=== PATIENT | female | born 1990 | race Caucasian/White ===

== ENCOUNTER 2022-05-14 00:38 | Day surgery (SDC) | payer OTHER, BC, SELFPAY ==
--- NOTE | 2022-05-11 07:27 | PM.IMHP ---
H&P: HPI History of Present Illness Date/Time: 05/11/22 07:27 Chief Complaint: Desires sterilization with excessive heavy bleeding Narrative: This is a 32-year-old female with a Nexplanon and would like to have tubal ligation for permanent sterilization as well as an ablation due to excessive heavy bleeding. She has no children but she is sure that she wants none in the future. She understands this to be permanent and irreversible. Alternatives were reviewed and she declined. She will also have her Nexplanon removed at this time and that will be reviewed preoperatively. Risks and benefits of these procedures were reviewed including but not exclusive of , aspiration pneumonia, bleeding, transfusion, perforation injury to bowel, bladder, ureters, or other internal organs with need for open laparotomy. She received the ACOG handout entitled sterilization for females and males as well as hysteroscopy and dilatation and curettage respectively. She received the Deepa handout and had all questions answered and asked to proceed PMFSH Family History Family History Grandparent Hypertension Family history of coronary artery disease Diabetes mellitus Other Carcinoma of colon Family history of lung cancer Social History Social History Smoking status: Never smoker Second hand tobacco smoke exposure: No Alcohol intake: never Meds Home Medications and Allergies Allergies Allergy/AdvReac Type Severity Reaction Status Date / Time amoxicillin Allergy Unknown Verified 03/26/20 10:43 Exam Const: General: cooperative, healthy appearing and comfortable Nutritional Appearance: average body habitus Orientation/consciousness: oriented to person, oriented to place and oriented to time HENMT: Head: normal to inspection Resp: Effort & Inspection: normal respiratory effort Cardio: Rate: regular rate Rhythm: regular rhythm Heart sounds: S1 normal heart sound present and S2 normal heart sound present GI: Inspection: normal to inspection Auscultation: normal bowel sounds : External Female Exam: normal external appearance Speculum Exam - Vagina: normal appearance of the vagina Speculum Exam - Cervix: normal appearance of the cervix Bimanual exam- vagina & uterus: uterine size normal Bimanual Exam- Adnexa, other: normal adnexae Assessment and Plan Assessment and plan (1) Sterilization: Code(s): Z30.2 - Encounter for sterilization Status: Acute (2) Excessive bleeding: Code(s): R58 - Hemorrhage, not elsewhere classified Status: Acute Plan Laparoscopic bilateral tubal ligation/hysteroscopy/dilatation curettage/Deepa ablation/removal of Nexplanon
[2022-05-12 08:22] VITALS: BMI 26.2
--- NOTE | 2022-05-12 08:26 | PC.NURSE ---
Report to the Outpatient Waiting Room, entrance under the green pavilion located off [facility], at time 0730 on date 05/14/22. Planned Procedure Time: 0930. Time changes happen often and if your time is changed the preop area will call you the afternoon before. - You and your visitor will be asked to self-screen and do not enter if you have any COVID symptoms. - We encourage only one visitor and NO visitors under age 16 are allowed at this time. Your visitor will receive communication by the phone number that is given day of service. - The patient visitor is requested to social distance or may leave the building when not with patient due to restrictions. - A mask is OPTIONAL within the hospital. Patients may have clear liquids (water, carbonated beverages, clear teas, apple juice) until 3 hours prior to surgery with a maximum of 20 ounces. - No food from midnight until time of surgery Take the following medications with a SIP of water the morning of surgery: LAMOTRIGINE, THYROID, TRINTELLIX, XANAX & VALACYCLOVIR IF NEEDED Medications to discontinue per physician: VITAMIN Date to take last dose: NO MORE UNTIL AFTER SURGERY Please no make-up, nail greenlandic, hairspray, perfume, deodorant, or body powder the day of surgery. No jewelry (including any body piercings) or valuables the day of surgery, leave them at home. Please take a shower or bath the night before, or the morning of, surgery with an antibacterial soap. Wear comfortable, loose fitting clothing. - Jewelry must be removed prior to entering the operating room. Rings and piercings that are not removed may be cut off. - The hospital will not accept responsibility for valuables. - Please leave all valuables, including medications, at home the day of surgery. If you are going home after surgery, a licensed power truck driver must drive you home. - NO public transportation without another adult. - We recommend that an adult stay with you for 24 hours following discharge. - We also recommend that you do not drive, make important decision, drink alcoholic beverages, or take any drugs that were not prescribed by your health care provider for at least 24 hours after your discharge time. Follow any additional instructions given to you from your surgeon. If you or anyone in your household have experienced Covid symptoms in the past week, please notify your surgeon or the nurse liaison at the phone number below for possible testing. Telephone instructions given to DENISSE - SHRUTHI COLMENARES and asked if any additional questions and then verbalized understanding. Patient advised to call surgeon office or pre surgery nurse liaison [phone] if any additional questions.
[2022-05-14] VITALS (12 sets, daily range): BP systolic 107–122; BP diastolic 55–79; PULSE 66–101; RESP 10–16; TEMP 36.2–36.9; O2SAT 92–100; BMI 26.1
--- NOTE | 2022-05-14 06:06 | WPDHPUPDATE1 ---
History and Physical Update Update Date/Time: 05/14/22 06:06 History and Physical has been reviewed, including an updated exam of the patient. There are NO changes in the patient's condition. Risks, benefits, and alternatives have been discussed and questions answered. Patient agrees to proceed with procedure.
--- NOTE | 2022-05-14 08:09 | WPDANESEPPF ---
Anes - Initial Pre Proc Eval Procedure: Operation Date: 05/14/22 09:30 Proposed Procedures p Laparoscopic Bilateral Tubal Ligation with Fallopian Rings - Jesse Nagel MD s Hysteroscopy, Dilation and Curettage with Deepa Endometrial Ablation with Removal of Nexplanon Implant Right Arm - Jesse Nagel MD Date/Time: 05/14/22 08:09 Surgeon: Jesse Nagel MD Pre Op Diagnosis: Desire Sterilzation, Irrg Bleeding Patient Data Age: 32 Gender: F Height: 1.85 m Weight: 89.8 kg Last Vital Signs Temp 36.2 C L 05/14/22 07:45 Pulse 74 05/14/22 07:45 Resp 16 05/14/22 07:45 BP 111/68 05/14/22 07:45 Pulse Ox 99 05/14/22 07:45 O2 Del Method Room Air 05/14/22 07:45 Allergies Allergy/AdvReac Type Severity Reaction Status Date / Time No Known Allergies Allergy Verified 05/14/22 07:53 Home Medications Medication Instructions Recorded Confirmed Type alprazolam 0.5 mg tablet (Xanax) 0.5 mg PO TID PRN Anxiety 05/12/22 05/12/22 History cholecalciferol (vitamin D3) 125 125 mcg PO DAILY 05/12/22 05/12/22 History mcg (5,000 unit) tablet (Vitamin D3) lamotrigine 150 mg tablet 150 mg PO BID 05/12/22 05/12/22 History loratadine 10 mg tablet (Claritin) 10 mg PO DAILY 05/12/22 05/12/22 History thyroid (pork) 30 mg tablet (SUBSTATION ELECTRICIAN SUPERVISOR 30 mg PO DAILY 05/12/22 05/12/22 History Thyroid) valacyclovir 500 mg tablet 500 mg PO DAILY PRN Cold Sores 05/12/22 05/12/22 History vortioxetine 10 mg tablet 10 mg PO DAILY 05/12/22 05/12/22 History (Trintellix) zolpidem 5 mg tablet 5 mg PO HS PRN Insomnia 05/12/22 05/12/22 History hydrocodone 5 mg-acetaminophen 325 1 tablet PO Q4H PRN pain #30 tabs 05/14/22 Rx mg tablet Patient hx anesthesia problems: none Family hx anesthesia problems: none Results Review: All pre-operative results and documents have been reviewed as part of the pre-operative evaluation. [facility] Past Medical History Medical History Anxiety Hypothyroid Family History Family History Grandparent Hypertension Family history of coronary artery disease Diabetes mellitus Other Carcinoma of colon Family history of lung cancer Social History Social History Smoking status: Never smoker Second hand tobacco smoke exposure: No Alcohol intake: current Drinks per week: 4 Substance use: never Substance use type: does not use Living arrangements: with family Spiritual care concerns: No Anes - Eval Final PreProcedure Day of Procedure 05/14/22 08:09 Patient weight: overweight Heart: regular rate and rhythm Lungs: clear to auscultation Airway: Mallampati scale class II Neurological: alert and oriented Last oral intake: >/= 8 hours ASA classification: II Emergent: no Anesthetic plan: proceed Anesthesia type and monitoring: general ETT and standard monitoring Results Review: All pre-operative results and documents have been reviewed as part of the pre-operative evaluation. Informed Consent: The patient's anesthetic plan and its attendant risks and benefits were discussed with the patient/family/POA. Questions were solicited and answers provided to the satisfaction of the patient/family/POA.
[2022-05-14] MEDS: LACTATED RINGERS 1,000 ML 30 ML IV CONT ×2 (08:13→09:30)
[2022-05-14] MEDS: ACETAMINOPHEN 500 MG TABLET 1000 MG PO (08:14)
[2022-05-14] MEDS: KETOROLAC 15 MG/ML VIAL (*BKC) IV PUSH (08:15)
[2022-05-14 08:16] LABS: Hematocrit 43.2 % (37.0-47.0); Hemoglobin 14.6 g/dL (12.0-15.0)
[2022-05-14] MEDS: SCOPOLAMINE 1.5 MG PATCH TRANSDERM (08:21)
--- NOTE | 2022-05-14 09:27 | P.OP_ITS ---
Procedure Note - Detailed Date of Procedure 05/14/22 Pre-op Diagnosis Desire Sterilzation, Irrg Bleeding Post-op Diagnosis Other (Endometriosis) Procedure Performed laparoscopy UB with bilateral tubal ligation via silastic rings. Cauterization of endometriosis. Hysteroscopy. Dilatation curettage. Deepa ablation. Removal of Nexplanon Surgeon Jesse Nagel MD Anesthesia General Indications this is the 32-year-old female who desires permanent sterilization and with excessive heavy bleeding Findings normal-appearing uterus ovaries and tubes. Powder burn endometriosis along the right and left uterosacral ligaments. Appendix appeared to be previously removed. Gallbladder and liver edge appeared within normal limits. On hysteroscopy the uterus was 7.5cm with clots and bloody tissue present. Description of Procedure Patient was prepped draped in the normal sterile fashion placed in the dorsal lithotomy position. Under excellent general trach anesthesia weighted speculum placed posterior fornix vagina. Anterior lip of the cervix grasped with single- tooth tenaculum. The Roberson's cannula inserted the cervix and attached to the single-tooth. This would be used later for uterine manipulation. The bladder emptied of clear urine with Whitley catheter. The weighted speculum removed and gloves were changed. An infraumbilical incision made. Veress needle passed in the abdomen. Abdomen filled with CO2 gas [id number]. The 5mm trocar advanced with the Optiview under direct visualization assuring no injury. Patient placed in Trendelenburg and a suprapubic incision made. The 8mm trocar advanced in the abdomen the downside visualized no injury seen. Gas reattached. The right fallopian tube was grasped in a good knuckle of tube formed with the fallopian tube ring. Falope photo documentation undertaken. The left fallopian tube was grasped with midportion a good knuckle of tube formed with excellent blanching as well. Areas of endometriosis were seen along the right left uterosacral ligament. Using monopolar cautery at 35 w per 2nd these were desiccated without difficulty. Irrigation undertaken to clear. The appendix appeared to be surgically removed. The gallbladder and liver edge appeared within normal limits. No abnormalities were seen otherwise and the lower site removed. The gas removed from the abdomen and the upper site removed. The incisions closed with 4 Monocryl and glue. Attention was then turned to the hysteroscopic portion Uterus sounded to7.5cm. Serial dilatation with fragmented dilators performed followed by passage of the 5mm visualizing hysteroscope. Normal saline was used as visualizing medium. Each fallopian tube os could be seen there was a fair amount of bloody irregular tissue but no evidence of polyp or other abnormality. Uterus was then scraped over the entire 360? until a good grating sound was heard. The Deepa instrument was placed in the uterus at the appropriate and burned and 4 120seconds. This was then removed. The instruments removed and attention was turned to removal of the Nexplanon. A 11 blade was used to with a stab wound in right and a right antecubital area. This was removed with a mosquito clamp in 1 piece. This was then closed with glue. The patient was then awakened and went to recovery in satisfactory condition. All sponge, needle, instrument counts were correct. Blood loss for the entire procedure estimated at5cc. There were no immediate complications noted Estimated Blood Loss 5 Drains No Packing No Pathology Yes Complications No immediate complications Condition Stable Disposition PACU
[2022-05-14] MEDS: fentaNYL CITRATE INJ (*CRX) 100 MCG/2 ML VIAL 25 MCG IV PUSH ×6 (09:43→10:15)
[2022-05-14] MEDS: MEPERIDINE HCL INJ (*CRX) 50 MG/ML AMPUL IV PUSH ×2 (10:27→10:53)
[2022-05-14] MEDS: diazePAM INJ (*CRX) 10 MG/2 ML SYRINGE 2.5 MG IV PUSH (10:31)
[2022-05-14] MEDS: ONDANSETRON INJ 4 MG/2 ML VIAL IV PUSH (11:25)
[2022-05-14] MEDS: oxyCODONE HCL (*CRX) 5 MG TAB IR PO (12:13)
== END 2022-05-14 12:40 | disposition home or self-care (01) ==
PROVIDERS: PCP Family Medicine; Visit Provider Obstetrics & Gynecology
PROC: (CPT 58671; principal; 2022-05-14 09:30)
PROC: 0U5B8ZZ Destruction of Endometrium, Via Natural or Artificial Opening Endoscopic (ICD-10-PCS; CPT 58563; 2022-05-14 09:30)
DX: Z30.2 Encounter for sterilization (principal); N93.9 Abnormal uterine and vaginal bleeding, unspecified; N80.3C3 Endometriosis of bilateral uterosacral ligament(s), unspecified depth; Z30.46 Encounter for surveillance of implantable subdermal contraceptive; E03.9 Hypothyroidism, unspecified; F41.9 Anxiety disorder, unspecified
CPT/HCPCS: 58671; 58563; 58662; 11982; 36415; 85014; 85018; 88305; A4264; A9270; J1100; J1885; J2175; J2250; J2405; J2704; J2710; J3010; J3360; J7030; J7120

== ENCOUNTER 2025-01-24 11:31 | Outpatient (CLI) | payer OTHER, SELFPAY ==
--- NOTE | ~2025-01-24 | XR_ITS ---
AP and oblique views of the SI joints CLINICAL HISTORY: Sacrococcygeal disorder FINDINGS: No acute fracture or dislocation seen. There is orthopedic fusion across the left SI joint. Right SI joint are intact. Bilateral hip joints are intact. Soft tissues are unremarkable. IMPRESSION: Status post orthopedic fixation across the left SI joint. Reviewed, dictated and finalized at location .
--- OUTSIDE RECORDS SUMMARY | 2025-01-24 11:36 | XMS_ITS | Referral Summary ---
Author Organization [facility] Virtual Care Address [address] [place] [id number] Phone Care Team Providers Care Maintenance Supervisor Name Role Phone Juanjose Jesse Juan Carlos Primary Care Provider Allergies No known active allergies Medications ergocalciferol (VITAMIN D) 50,000 unit capsule Take 1.25 mg by mouth Active albuterol HFA (PROVENTIL HFA,VENTOLIN HFA,PROAIR HFA) 90 mcg/actuation inhaler Inhale 2 puffs every 4 (four) hours as needed 01/22/20 19 Active zolpidem (AMBIEN) 5 mg tabletIndications :Primary insomnia Take 1 tablet (5 mg total) by mouth nightly as needed for sleep 90 tablet 1 07/27/19 24 Active valACYclovir (Valtrex) 500 mg tablet Take 1 tablet (500 mg total) by mouth 2 (two) times a day 180 tablet 1 09/28/19 24 Active Vraylar 1.5 mg capsule capsule Take 1 capsule (1.5 mg total) by mouth daily 02/21/20 24 Active lamoTRIgine (LaMICtal) 100 mg tablet Take 1 tablet (100 mg total) by mouth daily 02/19/20 24 Active lisdexamfetamine (VYVANSE) 50 mg capsule TAKE 1 CAPSULE BY MOUTH ONCE DAILY IN THE MORNING 04/11/20 24 Active triamcinolone (Nasacort) 55 mcg nasal inhaler Administer 1 spray into each nostril daily Active loratadine (CLARITIN) 10 mg tablet Take 1 tablet (10 mg total) by mouth daily Active propranoloL (INDERAL) 10 mg tablet Take 1 tablet (10 mg total) by mouth 3 (three) times a day as needed Active NIFEdipine (NIFEdipine CC) 30 mg 24 hr tabletIndications :Raynaud's disease without gangrene Take 1 tablet (30 mg total) by mouth daily 90 tablet 3 07/30/19 25 2025 Active ALPRAZolam (XANAX) 0.5 mg tablet Take 1 tablet (0.5 mg total) by mouth nightly as needed for anxiety 60 tablet 1 08/22/19 25 Active levothyroxine (SYNTHROID) 50 mcg tabletIndications :Other specified hypothyroidism TAKE 1 TABLET EARLY IN THE MORNING BEFORE BREAKFAST 90 tablet 1 10/02/19 25 Active escitalopram (LEXAPRO) 10 mg tabletIndications :Depression with anxiety TAKE 1 TABLET DAILY 90 tablet 1 01/01/20 25 Active escitalopram (LEXAPRO) 10 mg tabletIndications :Depression with anxiety TAKE 1 TABLET DAILY 100 tablet 1 06/29/20 24 2024 Discontinued Active Problems Problem Noted Date Diagnosed Date Raynaud's disease without gangrene 07/30/2024 Overview (07/30/2024): New condition July 2024 Start nifedipine Otalgia of both ears 06/17/2024 Nasal septal perforation 06/17/2024 Peptic ulcer disease 10/17/2023 Renal insufficiency, mild 10/17/2023 Overview (10/17/2023): GFR greater than 90 in October 2022 GFR 87 in April 2023 GFR 87 in June 2023 GFR 82 in October 2022 Mild intermittent asthma 07/27/2023 Overview (07/30/2024): Chronic stable condition with p.r.n. use of albuterol Continue same medications Routine physical examination 07/27/2023 Overview (07/30/2024): July 30, 2024 Other specified hypothyroidism 10/02/2021 Overview (07/30/2024): Chronic, stable condition on replacement Continue same medications Attention deficit 04/25/2018 Overview (07/30/2024): Chronic, stable condition on Vyvanse Continue same medications Depression with anxiety 05/31/2017 Overview (07/30/2024): Chronic, stable condition on current medications She follows psychology/psychiatry providers Doing well and she will continue same medications Insomnia 05/31/2017 Overview (07/30/2024): Chronic, stable condition on Ambien Continue same medications Immunizations Immunization Administration Dates Next Due Influenza, Quadrivalent, Naheed l Culture-based MDCK, Antibiotic Free, Intramuscular 04/16/2019 Influenza, Quadrivalent, Rec ombinant, Egg Free, Preservative Free, Intramuscular 04/12/2019 Influenza, Quadrivalent, Spl it, Preservative Free, Intramuscular 04/12/2023 Influenza, Trivalent, Preser vative Free, Intramuscular 04/17/2024 Influenza, Unspecified 04/18/2023,04/16/2019 Pneumococcal Conjugate Pcv20 10/17/2023(Deferred : Patient Refused) Social History Tobacco Use Types Packs/Day Years Used Date Smoking Tobacco: Never Cigarettes Smokeless Tobacco: Never Tobacco Cessation:Counseling Given: Not Answered AUDIT-C Answer Date Recorded Q1: How often do you have a drink containing alc ohol? 2-3 times a week 07/27/2023 Q2: How many drinks containi ng alcohol do you have on a typical day when you are drinking? 3 or 4 07/27/2023 Q3: How often do you have si x or more drinks on one occasion? Never 07/27/2023 PHQ-2 Answer Date Recorded PHQ-2 Total Score (If total score is 3 or more points, staff should administer the PHQ-9) 0 07/30/2024 Comments Unknown Sex and Gender Information Value Date Recorded Sex Assigned at Not on file Legal Sex Female 8:24 AM MACHINE OPERATOR REPLANTER Gender Identity Female 05/04/2021 11:12 AM CDT Sexual Orientation Straight 05/04/2021 11 :12 AM CDT Last Filed Vital Signs Vital Sign Reading Time Taken Comments Blood Pressure 124/76 07/30/2024 8:29 AM MACHINE OPERATOR REPLANTER Pulse 75 07/30/2024 8:29 AM MACHINE OPERATOR REPLANTER Temperature 36.4 C (97.5 F) 07/30/2024 8:29 AM MACHINE OPERATOR REPLANTER Respiratory Rate 18 07/30/2024 8:29 AM MACHINE OPERATOR REPLANTER Oxygen Saturation 99% 07/30/2024 8:29 AM MACHINE OPERATOR REPLANTER Inhaled Oxygen Concentration - - Weight 87.8 kg (193 lb 9.6 oz) 07/30/2024 8:29 A M MACHINE OPERATOR REPLANTER Height 185.4 cm (6' 1) 07/30/2024 8:29 AM MACHINE OPERATOR REPLANTER Body Mass Index 25.54 07/30/2024 8:29 AM MACHINE OPERATOR REPLANTER Plan of Treatment Not on file Procedures Procedure Name Priority Date/Time Associated Diagnosis Comments HEPATITIS C ANTIBODY Routine 07/30/2024 9:12 AM MACHINE OPERATOR REPLANTER Need for hepatitis C screening test from Last 3 Months or Most Recently Relevant to Health Maintenance Results * Hepatitis C antibody Blood (07/30/2024 9:12 AM MACHINE OPERATOR REPLANTER) Hep C Ab Nonreactive Nonreactive Comment: Antibodies to HCV not detected. Does NOT exclude the possibility of recent exposure to HCV. Current interpretive data was last revised on 22 Interpretive Data Nonreactive: Antibodies to HCV not detected. Does NOT exclude the possibility of recent exposure to HCV. Equivocal: Equivocal for HCV antibodies. Supplemental molecular testing will be automatically performed to determine infection status in accordance with current CDC screening recommendations. Reactive: Positive for HCV antibodies. This may represent current or past HCV infection. Supplemental molecular testing will be automatically performed to determine current infection status in accordance with current CDC screening recommendations. Interpretive data was last revised on 2019. Blood 07/30/2024 9:12 AM MACHINE OPERATOR REPLANTER 07/30/2024 10:23 AM MACHINE OPERATOR REPLANTER Jesse Sow DO LAB MICROBIOLOGY - GEN ERAL ORDERABLES Final Result [facility] [id number] [facility] Department [place] [address] from Last 3 Months or Most Recently Relevant to Health Maintenance Insurance [facility] OPEN ACCESS [facility] OPEN ACCESS Care Teams Maintenance Supervisor Relationship Specialty Start Date End Date Jesse Sow DO [phone] (work) PCP - General Family Medicine 07/27/23
--- OUTSIDE RECORDS SUMMARY | 2025-01-24 11:36 | XMS_ITS | Clinical Summary ---
Author Organization [facility] Address [address] [place] [address] Care Team Providers Care Microwave Remote Sensing Scientist Name Role Phone Jesse Sow DO Primary Care Provider [phone] Jesse Sow DO Unavailable [phone] Source Comments [facility],non-owned Affiliates and Associated Physician Practices is amultiple site organization consisting of ambulatory clinics and hospital sitesin [place], [place], [place] and [place]. This disclosure is being madepursuant to the Care Everywhere program and may not contain all information available regarding this patient. Last updated 18.[facility] Medications * Be aware that medications may not be up to date on this document. Alwaysverify current medications with the patient. Covid-19, Pfizer, booster 12y+ bivalent mRNA vaccine, Tucker Cap, 30 MCG/0.3ML SUSP injection PHARMACIST TO ADMINISTER 0.3 ML INTO RIGHT DELTOID MUSCLE. HEAD BELLHOP CAPTAIN: PFIZER, VIS: 03/10/22, LOT: [id number], EXP DATE: 01/07/23. VIS GIVEN: 04/12/22 0.3 mL 2 Active Social History Tobacco Use Types Packs/Day Years Used Date Smoking Tobacco: Never Assessed Comments Unknown Sex and Gender Information Value Date Recorded Sex Assigned at Female 09/30/2023 9:55 AM CDT Legal Sex Female 12:10 PM SENIOR STRUCTURAL ENGINEER Gender Identity Female 09/30/2023 9:55 AM CDT Sexual Orientation Straight 09/30/2023 9: 55 AM CDT Plan of Treatment Health Maintenance Due Date Last Done Comments HIV SCREENING 01/23/2004 HEPATITIS C SCREENING 01/18/2007 DTAP/TDAP/TD VACCINES (1 - Tdap) 01/23/2008 HEPATITIS B VACCINE (1 of 3 - 19+ 3-dose series) 01/23/2008 PAP SMEAR 2010 HPV VACCINE (1 - 3-dose SCDM series) 01/23/2016 COVID-19 VACCINE (3 - 2023-2 5 season) 2024 07/18/2020, 06/27/2020 DEPRESSION SCREENING 07/11/2024 INFLUENZA VACCINE (#1) 2025 9, 04/12/2019 ZOSTER VACCINE (1 of 2) 2039 HIB VACCINE Aged Out No longer eligi ble based on patient's age to complete this topic MENINGOCOCCAL (Group B) VACCINE SHARED DECISION-MAKING Aged Out No longer eligible based on patient's age to complete this topic MENINGOCOCCAL GROUPS A/C/Y/W VACCINE Aged Out No longer eligible b ased on patient's age to complete this topic PNEUMOCOCCAL VACCINE Aged Out No long er eligible based on patient's age to complete this topic Insurance [employer]TH TP [employer] LIABILITY Care Teams Microwave Remote Sensing Scientist Relationship Specialty Start Date End Date Jesse Sow DO PCP - General Family Medicine 06/29/18 Jesse Sow DO Family Medicine 06/29/18
--- OUTSIDE RECORDS SUMMARY | 2025-01-24 11:36 | XMS_ITS | Clinical Summary ---
Author Organization [facility] Address [address] [place] [address] Phone Care Team Providers Care Fur Grader Name Role Phone Unavailable Primary Care Provider Unavailabl e Social History Tobacco Use Types Packs/Day Years Used Date Smoking Tobacco: Never Assessed Comments Unknown Sex and Gender Information Value Date Recorded Sex Assigned at Not on file Legal Sex Female 10:27 AM MANAGER THERAPY Gender Identity Not on file Sexual Orientation Not on file Plan of Treatment Health Maintenance Due Date Last Done Comments DTAP/TDAP/TD VACCINES (1 - Tdap) 01/23/2008 HEPATITIS B VACCINES (1 of 3 - 19+ 3-dose series) 01/23/2008 HPV/Cotest (21-29) 2010 CERVICAL CANCER SCREENING 2019 HPV/Cotest (30-65) 2019 PAP SMEAR 2019 INFLUENZA VACCINE (#1) 2025 HPV VACCINES Aged Out No longer eligi ble based on patient's age to complete this topic
--- OUTSIDE RECORDS SUMMARY | 2025-01-24 11:36 | XMS_ITS | Encounter Summary ---
Author Organization [facility] Address [address] [place] [id number] Care Team Providers Care Book Canvasser Name Role Phone Lynda Luo MD Primary Care Provider [phone] Jesse Sow DO Primary Care Provider [phone] Encounter Details Date Type Department Care Team (Late st Contact Info) Description 04/18/2023 [place] [employer] Message Enc [facility] Family Medicine [facility] [address] [place] [address] Lynda Luo MD [address] [place] [address] Psychiatric F/U Social History Tobacco Use Types Packs/Day Years Used Date Smoking Tobacco: Never Smokeless Tobacco: Never Alcohol Use Standard Drinks/Week Comments Yes 3.3 (1 standard drink = 0.6 oz p ure alcohol) occasionally PHQ-2 Answer Date Recorded Patient Health Questionnaire-2 Score 0 10/18/2022 Comments No Sex and Gender Information Value Date Recorded Sex Assigned at Not on file Legal Sex Female 5:58 PM CDT Gender Identity Not on file Sexual Orientation Not on file Occupation Industry Job Start Date Job End Date [employer] [facility] Not on file Not on file Not on file documented as of this encounter Plan of Treatment Not on file documented as of this encounter Visit Diagnoses Not on filedocumented in this encounter Additional Health Concerns Assessment Noted Time PHQ-9 Depression Total Score: 0 10/03/19 22 2:15 PM CDT documented as of this encounter Care Teams Book Canvasser Relationship Specialty Start Date End Date Redmer, Lynda L, MD [facility] [place] [address] PCP - General 04/15/23 10/09/23 Jesse Sow DO [address] [place] [id number] PCP - General 10/10/23 documented as of this encounter
--- OUTSIDE RECORDS SUMMARY | 2025-01-24 11:36 | XMS_ITS | Clinical Summary ---
Author Organization [facility] Address [address] [place] [address] Care Team Providers Care Hoop Punch Operator Helper Name Role Phone Jesse Sow DO Primary Care Provider [phone] Allergies No known active allergies Medications ALPRAZolam 0.5 MG tablet Take 1 tablet (0.5 mg total) by mouth nightly as needed for Sleep. Active albuterol sulfate HFA 108 (90 Base) MCG/ACT inhalerIndications: Exercise-induced asthma (HHS/HCC) Inhale 2 puffs into the lungs every 4 (four) hours as needed. 8 g 9 Active vitamin D2, ergocalciferol, (DRISDOL) 1.25 mg capsule Take 1 capsule (1.25 mg total) by mouth. Active zolpidem (AMBIEN) 5 MG tabletIndications:P rimary insomnia TAKE 1 TABLET BY MOUTH NIGHTLY NEEDED FOR SLEEP 30 tablet 3 Active loratadine (CLARITIN) 10 MG tablet daily. Active VALTREX 500 MG tablet Active escitalopram (LEXAPRO) 10 MG tabletIndications:D epression with anxiety Take 1 tablet (10 mg total) by mouth daily. 90 tablet 3 Active lamoTRIgine (LAMICTAL) 150 MG tabletIndications:D epression with anxiety Take 1 tablet (150 mg total) by mouth 2 (two) times daily. 180 tablet 3 Active levothyroxine (SYNTHROID) 50 MCG tabletIndications:H ypothyroid Take 1 tablet (50 mcg total) by mouth every morning. 90 tablet 3 Active ondansetron (ZOFRAN-ODT) 4 MG disintegrating tablet Take 1 tablet (4 mg total) by mouth every 8 (eight) hours as needed. 15 tablet 4 Active sucralfate (CARAFATE) 1 G tablet Take 1 tablet (1 g total) by mouth 4 (four) times daily as needed (for pain). 30 tablet 4 Active omeprazole (PRILOSEC) 40 MG capsule Take 1 capsule (40 mg total) by mouth daily. 30 capsule 4 Active Active Problems Problem Noted Date Diagnosed Date Other specified hypothyroidism 10/02/2021 Attention deficit 04/25/2018 Allergic rhinitis 12/15/2017 CTS (carpal tunnel syndrome) 11/09/2017 Backache 05/31/2017 Chronic sinusitis 05/31/2017 Depression with anxiety 05/31/2017 Exercise-induced asthma (HHS/HCC) 05/31/2017 Premenstrual dysphoric disorder 05/31/2017 Encounter for preventive health examination 05/12 Overview (01/02/2019): Transitioned From: Encounter for preventive health examination Insomnia 05/31/2017 Immunizations Immunization Administration Dates Next Due Flublok (Quadrivalent) 04/12/2019 Flulaval Quad (Prefilled Syringe) 04/12/2023 Influenza Adult (Generic) 04/16/2019 PFIZER COVID-19 (ORIGINAL FO RMULATION, PURPLE CAP) mRNA, LNP-S, PF, 30 MCG/0.3 ML DOSE 07/18/2020,06/27/2020 Family History Medical History Relation Comments Depression Brother Drug Abuse Brother Mental Health Brother Retardation/Learning Difficulties Brother Arthritis Father Coronary artery disease Father Diabetes Father Hyperlipidemia Father Hypertension Father Asthma Mother Cancer Mother breast and skin Depression Mother COPD Other Relation Status Comments Brother Father Alive Mother Alive Other Social History Tobacco Use Types Packs/Day Years Used Date Smoking Tobacco: Never Smokeless Tobacco: Never Tobacco Cessation:Counseling Given: Not Answered Alcohol Use Standard Drinks/Week Comments Yes 3.3 (1 standard drink = 0.6 oz p ure alcohol) occasionally PHQ-2 Answer Date Recorded Patient Health Questionnaire-2 Score 0 05/27/2023 Comments No Sex and Gender Information Value Date Recorded Sex Assigned at Not on file Legal Sex Female 5:58 PM CDT Gender Identity Not on file Sexual Orientation Not on file Occupation Industry Job Start Date Job End Date [employer] [facility] Not on file Not on file Not on file Last Filed Vital Signs Vital Sign Reading Time Taken Comments Blood Pressure 121/72 10/10/2023 12:55 PM CDT Pulse 70 10/10/2023 12:55 PM CDT Temperature 36.6 C (97.8 F) 10/10/2023 12:55 PM CDT Respiratory Rate 16 10/10/2023 12:55 PM CDT Oxygen Saturation 100% 10/10/2023 12:55 PM CDT Inhaled Oxygen Concentration - - Weight 90.7 kg (200 lb) 10/10/2023 9:09 AM CDT Height 185.4 cm (6' 1) 10/10/2023 9:09 AM CDT Body Mass Index 26.39 10/10/2023 9:09 AM CDT Plan of Treatment Health Maintenance Due Date Last Done Comments DTaP, Tdap and Td Vaccines ( 1 - Tdap) 01/23/2008 Hepatitis B Vaccines (1 of 3 - 19+ 3-dose series) 01/23/2008 Pneumococcal Vaccine: Pediatrics (0 to 5 Years) and At-Risk Patients (6 to 49 Years) (1 of 2 - PCV) 01/23/2008 Cervical Cancer Screening Pa p with HPV Testing (Age 30 to 64) Every 5 Years 2019 COVID-19 Vaccine (3 - 2023-2 5 season) 2024 07/18/2020, 06/27/2020 Annual Physical 04/18/2024 04/18/2023, 10/18/2022, 10/02/2021 PHQ-2 (Physician [place]) 07/11/2024 05/27/2023 Cervical Cancer Screening Pa p Smear (Age 30 to 64) Every 3 Years 05/11/2025 Cervical Cancer Screening wi th HPV 05/11/2025 Hepatitis C Completed 04/18/2023 HPV Vaccines Aged Out No longer eligi ble based on patient's age to complete this topic Meningococcal B Vaccine Aged Out No l onger eligible based on patient's age to complete this topic Meningococcal Vaccine Aged Out No gregorio ladonna eligible based on patient's age to complete this topic RSV Immunizations Under 20 Months Aged Out No longer eligible b ased on patient's age to complete this topic Procedures Procedure Name Priority Date/Time Associated Diagnosis Comments HEPATITIS C ANTIBODY Routine 04/18/2023 3:01 PM CDT Encounter for hepatitis C screening test for low risk patient from Last 3 Months or Most Recently Relevant to Health Maintenance Results * HEPATITIS C ANTIBODY (04/18/2023 3:01 PM CDT) HEPATITIS C AB NON-REACTI VE NON-REACT CHERYLE 04/18/2023 10:41 PM CDT [facility] Comment: ANTIBODIES TO HCV NOT DETECTED. DOES NOT EXCLUDE THE POSSIBILITY OF EXPOSURE TO HCV. 04/18/2023 3:01 PM CDT Lynda Luo MD LABORATORY Final Result [facility] [address] [place] [address], [id number] from Last 3 Months or Most Recently Relevant to Health Maintenance Insurance [facility] [employer] Care Teams Hoop Punch Operator Helper Relationship Specialty Start Date End Date Jesse Sow DO [address] [place] [id number] PCP - General 10/10/23
--- OUTSIDE RECORDS SUMMARY | 2025-01-24 11:36 | XMS_ITS | Clinical Summary ---
Author Organization [facility] Address [address] [place] [phone] Phone Care Team Providers Care Battery Engineer Name Role Phone Jesse Sow Primary Care Provider Allergies No known active [...] Pneumococcal Conjugate Pcv20 10/17/2023(Deferred : Patient Refused) Surgical History Surgery Date Site/Laterality Comments SINUS SURGERY 07/11/2018 - 07/10/2019 Bilateral Balloon, turb reduction, septoplasty TUBAL LIGATION SACROILIAC JOINT ARTHRODESIS Left Joint fusion TONSILLECTOMY Medical History Medical History Date Comments Depression Anxiety Arthritis Asthma Dysmenorrhea Menstrual problem Ear problems Sore throat Family History Medical History Relation Name Comments ADD / ADHD Brother Brother Bipolar disorder Brother Brother Depression Brother Brother Developmental delay Brother Brother Drug abuse Brother Brother Learning disabilities Brother Brother Mental illness Brother Brother Schizophrenia Brother Brother Arthritis Father Dad Diabetes Father Dad Heart disease Father Dad Hyperlipidemia Father Dad Hypertension Father Dad Alcohol abuse Maternal Grandfather Grandpa Cataracts Maternal Grandfather Grandpa Diabetes Maternal Grandfather Grandpa Glaucoma Maternal Grandfather Grandpa Alzheimer's disease Maternal Grandmother Moore Clotting disorder Maternal Grandmother Moore Heart disease Maternal Grandmother Moore Stroke Maternal Grandmother Moore Allergy (severe) Mother Mom Asthma Mother Mom Bipolar disorder Mother Mom Cancer Mother Mom Skin Depression Mother Mom Diabetes Mother's Brother Uncle COPD Paternal Grandfather Grandpa Cataracts Paternal Grandfather Grandpa Vision loss Paternal Grandfather Grandpa Anemia Paternal Grandmother Kwabena Heart disease Paternal Grandmother Mellnick Hypertension Paternal Grandmother Mellin Osteoporosis Paternal Grandmother Aldain Urinary tract infection Paternal Grandmother Kwabena Relation Name Status Comments Brother Brother Father Dad Alive Maternal Grandfather Grandpa Maternal Grandmother Oscar Mother Mom Alive Mother's Brother Uncle Paternal Grandfather Grandpa Paternal Grandmother Aldain Social History Tobacco Use Types Packs/Day Years [...] on file Legal Sex Female 8:24 AM HEALTH INSURANCE ADJUSTER Gender Identity Female 05/04/2021 11:12 AM CDT Sexual Orientation Straight 05/04/2021 11 :12 AM CDT Obstetrics History Last Filed Vital Signs Vital Sign Reading Time Taken Comments Blood Pressure 124/76 07/30/2024 8:29 AM HEALTH INSURANCE ADJUSTER Pulse 75 07/30/2024 8:29 AM HEALTH INSURANCE ADJUSTER Temperature 36.4 C (97.5 F) 07/30/2024 8:29 AM HEALTH INSURANCE ADJUSTER Respiratory Rate 18 07/30/2024 8:29 AM HEALTH INSURANCE ADJUSTER Oxygen Saturation 99% 07/30/2024 8:29 AM HEALTH INSURANCE ADJUSTER Inhaled Oxygen Concentration - - Weight 87.8 kg (193 lb 9.6 oz) 07/30/2024 8:29 A M HEALTH INSURANCE ADJUSTER Height 185.4 cm (6' 1) 07/30/2024 8:29 AM HEALTH INSURANCE ADJUSTER Body Mass Index 25.54 07/30/2024 8:29 AM HEALTH INSURANCE ADJUSTER Plan of Treatment Health Maintenance Due Date Last Done Comments Cervical Cancer Screening 1989 DTaP/Tdap/Td Vaccine (1 - Tdap) 01/23/2000 Varicella Vaccines (1 of 2 - 13+ 2-dose series) 2002 Pneumococcal vaccine <65 (1 of 2 - PCV) 01/23/2008 Covid-19 Vaccine (2023- season) 2024 04/12/2022, 07/18/2020, 06/27/2020 Depression Screening 07/30/2025 07/30/2024, 07/27/19 24 Regular Well Visit/Exam 18-64 07/30/2025 07/30/2024, 07/30/2024 Influenza Vaccine Completed 04/17/2024, , 04/12/2023, Additional history exists Hepatitis B Screening Completed 07/30/2024 Hepatitis C Screening Completed 07/30/2024 HPV Vaccines Aged Out No longer eligi ble based on patient's age to complete this topic Procedures Procedure Name Priority Date/Time Associated Diagnosis Comments HEPATITIS C ANTIBODY Routine 07/30/2024 9:12 AM HEALTH INSURANCE ADJUSTER Need for hepatitis C screening test from Last 3 Months or Most Recently Relevant to Health Maintenance Results * Hepatitis C antibody Blood (07/30/2024 9:12 AM HEALTH INSURANCE ADJUSTER) Hep C Ab Nonreactive Nonreactive Comment: Antibodies [...] revised on 2019. Blood 07/30/2024 9:12 AM HEALTH INSURANCE ADJUSTER 07/30/2024 10:23 AM HEALTH INSURANCE ADJUSTER Jesse Sow DO LAB MICROBIOLOGY - GEN ERAL ORDERABLES Final Result [facility] [id number] [facility] [place] [address] from Last 3 Months or Most Recently Relevant to Health Maintenance Insurance [facility] Care Teams Battery Engineer Relationship Specialty Start Date End Date Jesse Sow DO PCP - General Family Medicine 07/27/23
== END 2025-01-24 11:32 | disposition home or self-care (01) ==
PROVIDERS: PCP Nurse Practitioner Family; Visit Provider Nurse Practitioner Family
DX: M53.3 Sacrococcygeal disorders, not elsewhere classified (principal); Z98.890 Other specified postprocedural states
CPT/HCPCS: 72202

== ENCOUNTER 2025-04-11 10:33 | Outpatient (CLI) | payer OTHER, SELFPAY ==
--- NOTE | ~2025-04-11 | CT_ITS ---
EXAMINATION: CT pelvis wo con DATE: 04/11/2025 10:44 INDICATION: Left-sided sacroiliitis. TECHNIQUE: Computed tomography (CT) of the pelvis was performed without intravenous contrast. Automated exposure control and iterative reconstruction technique were employed. The dose-length product was 552.08 mGy-cm. COMPARISON: CT abdomen and pelvis 12/25/2014 FINDINGS: There are no dilated loops of bowel. There is no ascites. There are are no pathologically enlarged lymph nodes. Alignment is normal. No fracture. There are changes of arthrodesis procedure of left sacroiliac joint with 3 screws. There are erosions of left sacroiliac joint. No fracture. There is mild osteoarthritis of the hips. There is mild right sacroiliac joint osteoarthritis. There is mild lumbar spondylosis. IMPRESSION: 1. Left-sided sacroiliitis. Arthrodesis of left sacroiliac joint. 2. Mild polyarticular osteoarthritis. Reviewed, dictated and finalized at location E.
== END 2025-04-11 10:34 | disposition home or self-care (01) ==
PROVIDERS: PCP Nurse Practitioner Family; Visit Provider Nurse Practitioner Adult Health
DX: M46.1 Sacroiliitis, not elsewhere classified (principal); Z98.1 Arthrodesis status
CPT/HCPCS: 72192